=== PATIENT | female | born 1995 | race Two or more races ===

== ENCOUNTER 2024-01-10 09:13 | Emergency (ER) | payer MEDICAID ==
[~2024-01-10] VITALS: Ht 157.5 cm; Wt 72.6 kg
[2024-01-10] MEDS: ONDANSETRON ODT 4 MG TAB PO ONE (10:32)
[2024-01-10 11:27] LABS: Urine Bacteria FEW /hpf (None Seen); Urine Blood TRACE /uL (Negative); Urine Color Yellow (Yellow); Urine Mucus MODERATE (None Seen); Urine Protein, UAD 1+ (Negative); Urine Specific Gravity 1.033 (1.001-1.035); Urine Urobilinogen 4 mg/dL (Negative); Urine WBC 12 /hpf (0 - 5)
[2024-01-10 11:30] LABS: Urine Clarity Hazy (Clear)
[2024-01-10] MEDS ORDERED: DOXY10TA PO (12:03)
[2024-01-10 12:18] VITALS: BP 108/63; PULSE 73; RESP 16; TEMP 98; O2SAT 98
== END 2024-01-10 12:23 | disposition home or self-care (01) ==
LOC: ER 09:13
DX: O21.8 Other vomiting complicating pregnancy (principal); Z3A.01 Less than 8 weeks gestation of pregnancy
CPT/HCPCS: 81001; 81025; 99283; Q0162

== ENCOUNTER 2024-12-09 13:38 | Emergency (ER) | payer MEDICAID ==
[~2024-12-09] VITALS: Ht 157.5 cm; Wt 64.6 kg
[~2024-12-09 13:38] MED LIST: DOXY10TA PO
[2024-12-09 14:26] VITALS: BP 130/70; PULSE 117; RESP 16; TEMP 98.7; O2SAT 98
--- NOTE | 2024-12-09 15:44 | DVH ---
EXAM: XY R FOOT 3 VIEW XRAY CLINICAL INDICATION: R/o fracture TECHNIQUE: XY R FOOT 3 VIEW XRAY Comparison: None FINDINGS/IMPRESSION: Cortical irregularity of the base of the 1st distal phalanx, consistent with a nondisplaced fracture.
[2024-12-09] MEDS: NEOMYCIN-BACITRACIN-POLYM UNITDOSE PKG TOP OINT TOP ONE (16:44)
--- NOTE | 2024-12-09 16:51 | ED.PDOC ---
Musculoskeletal HPI Comments 29-year-old female presents for a possible fracture to the right great toe Reports a crusted injury three days ago Still able to ambulate but with pain No associated symptoms Chief Complaint: Lower Extremity Time Seen by MD: 14:19 Primary Care Provider: unknown Reviewed Notes: Nurses Notes, Medications, Allergies Allergies: Coded Allergies: NO KNOWN ALLERGIES (Unverified , 01/10/24) Home Meds Active Scripts Doxylamine-Pyridoxine (DICLEGIS) 1 Tab Tab, 2 TAB PO DIRECTED PRN, #30 TAB Take 2 tablet PO daily. If symptoms not well controlled increased to: 1 tablet in the morning, 1 tablet mid afternoon, and 2 tablets at bedtime. 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 01/10/24 Information Source: Patient Mode of Arrival: Ambulatory Past Medical History PAST MEDICAL HISTORY: Denies Surgical History: Denies all surgeries EXTRUDER TENDER History: No Pertinent EXTRUDER TENDER History Family History Family History: Reviewed,noncontributory to illness, No family hx of Cancer, No family hx of DM, No family hx of Heart dario, No family hx of HTN, No family hx ofKidney dario, No family hx of Liver dario, No family hx of Lung dario, No family hx of Stroke Social History Smoker: Non-Smoker Alcohol: Denies ETOH Use Drugs: Denies Drug Use All Other Systems: Reviewed and Negative (Per HPI) Physical Exam General Appearance: No Apparent Distress, Normal HEENT: Normal ENT Inspection, Pharynx Normal, TMs Normal Neck: Full Range of Motion, Non-Tender, Normal, Normal Inspection Respiratory: Chest Non-Tender, Lungs Clear, No Accessory Muscle Use, No Respiratory Distress, Normal Breath Sounds Cardiovascular: No Edema, No JVD, No Murmur, No Gallop, Normal Peripheral Pulses, Regular Rate/Rhythm Breast Exam: Deferred Gastrointestinal: No Organomegaly, Non Tender, No Pulsatile Mass, Normal Bowel Sounds, Soft Genitalia: Deferred Pelvic: Deferred Rectal: Deferred Extremities: No calf tenderness, Normal capillary refill, Normal inspection, Normal range of motion, Non-tender, No pedal edema Musculoskeletal : Location: Right Extremity Location: Great Toe (Mild swelling otherwise no gross abnormality) Apperance: Normal Neurologic: Alert, on site manager II-XII nml as Tested, No Motor Deficits, Normal Affect, Normal Mood, No Sensory Deficits Cerebellar Function: Normal Reflexes: Normal Skin: Dry, Normal Color, Warm Lymphatic: No Adenopathy Was a procedure done? Was a procedure done?: No Differential Diagnosis EXT Differential Diagnosis: Fracture, Sprain, Dislocation X-Ray, Labs, Meds, VS Vital Signs Date Time Temp Pulse Resp B/P (MAP) Pulse Ox O2 Delivery O2 Flow Rate FiO2 12/09/24 14:26 98.7 117 16 130/70 (90) 98 98.7 12/09/24 14:26 117 16 98 Room Air 12/09/24 14:09 98.7 117 16 130/70 (90) 98 98.7 Current Medications Medications (Trade) Dose Ordered Sig/Cindy Route Start Time Stop Time Status Last Admin Neomycin/ Polymyxin/ Bacitracin (Triple Antibiotic) 1 applic ONCE ONCE TOP 12/09/24 16:30 12/09/24 16:34 DC 12/09/24 16:44 X-Ray, Labs, Meds, VS Comment Workup: XR Findings: Fracture Patient does not currently demonstrate complications of fracture such as compartment syndrome, arterial or nerve injury. Intervention: reid tape and crutches Disposition: Discharge with strict return precautions and instructions to follow up with primary MD within 24-48 hours for further evaluation including referral to an orthopedist or light cleaner. Time of 1ST Reevaluation: 16:30 Reevaluation 1ST: Improved Patient Education/Counseling: Diagnosis, Treatment Family Education/Counseling: Diagnosis, Treatment Departure 1 Departure Time of Disposition: 16:51 Impression: Primary Impression: Toe fracture, right Qualified Codes: S92.404A - Nondisplaced unspecified fracture of right great toe, initial encounter for closed fracture Disposition: 01 HOME / SELF CARE / HOMELESS Condition: Stable Discharged With: Self Critical Care Note Critical Care Time?: No Stability Stability form required: No Heart Score Heart Score: Heart Score Response (Comments) Value History N/A 0 EKG N/A 0 Age N/A 0 Risk Factors N/A 0 Troponin N/A 0 Total 0 JUAN JOSE BUTTERFIELD MOLD 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
== END 2024-12-09 17:03 | disposition home or self-care (01) ==
LOC: ER 13:38
DX: S92.424A Nondisplaced fracture of distal phalanx of right great toe, initial encounter for closed fracture (principal); W23.0XXA Caught, crushed, jammed, or pinched between moving objects, initial encounter; Y93.89 Activity, other specified; Y92.89 Other specified places as the place of occurrence of the external cause; Y99.8 Other external cause status
CPT/HCPCS: 73630